=== PATIENT | male | born 1970 | race Caucasian/White ===

== ENCOUNTER 2019-12-08 20:11 | Emergency (ER) | payer SELFPAY ==
[~2019-12-08] VITALS: Ht 185.4 cm; Wt 99.8 kg
[2019-12-08 23:12] LABS: BASO # 0.1 10^3/uL (0.0-0.2); BASO % 0.7 % (0.0-1.0); EOS # 0.3 10^3/uL (0.0-0.5); EOS % 4.2 % (0.0-3.0); HEMATOCRIT 51.3 % (42.0-52.0); HEMOGLOBIN 17.3 g/dl (13.5-17.5); LYMPH # 2.4 10^3/uL (1.5-5.0); LYMPH % 33.4 % (24.0-44.0); MEAN CORPUSCULAR HEMOGLOBIN 29.1 pg (27.0-33.0); MEAN CORPUSCULAR HGB CONC 33.7 g/dl (32.0-36.5); MEAN CORPUSCULAR VOLUME 86.4 fl (80.0-96.0); MONO # 0.8 10^3/uL (0.0-0.8); MONO % 11.1 % (0.0-5.0); NEUTROPHILS # 3.6 10^3/uL (1.5-8.5); NEUTROPHILS % 50.2 % (36.0-66.0); PLATELET COUNT, AUTOMATED 271 10^3/uL (150-450); RED BLOOD COUNT 5.94 10^6/uL (4.30-6.10); WHITE BLOOD COUNT 7.2 10^3/uL (4.0-10.0)
[2019-12-08] MEDS ORDERED: KETOROLAC 30 MG/ML 1ML VIAL IV ONE (23:30)
[2019-12-08] MEDS ORDERED: DICYCLOMINE 10 MG CAP PO ONE (23:30)
[2019-12-08] MEDS ORDERED: NS 1,000 ML IV ONE (23:30)
[2019-12-08] MEDS ORDERED: ONDANSETRON 4MG/2ML VIAL IV ONE (23:30)
[2019-12-08 23:37] LABS: ALBUMIN 3.8 GM/DL (3.2-5.2); BILIRUBIN,DIRECT 0.2 MG/DL (0.0-0.2); BILIRUBIN,TOTAL 0.8 MG/DL (0.2-1.0); TOTAL PROTEIN 7.3 GM/DL (6.4-8.2)
[2019-12-08] MEDS ORDERED: ISOVUE-370 76% 100ML VIAL As Ordered ONE (23:47)
--- NOTE | 2019-12-09 00:37 | REPVR ---
PROCEDURE INFORMATION: Exam: CT Abdomen And Pelvis With Contrast Exam date and time: 12/09/2019 12:07 AM Age: 49 years old Clinical indication: Abdominal pain; Additional info: Diffuse abd pain more llq, diarrhea, n/v TECHNIQUE: Imaging protocol: Computed tomography of the abdomen and pelvis with intravenous contrast. Radiation optimization: All CT scans at this facility use at least one of these dose optimization techniques: automated exposure control; mA and/or kV adjustment per patient size (includes targeted exams where dose is matched to clinical indication); or iterative reconstruction. Contrast material: ISOVUE 370; Contrast volume: 100 ml; Contrast route: INTRAVENOUS (IV); COMPARISON: No relevant prior studies available. FINDINGS: Tubes, catheters and devices: Spinal pulse generator in the left flank. There are leads entering the spinal canal at T8-T9. Tip of the paddle are not fully imaged. Liver: Hypodense lesion in the right hepatic lobe measuring 9 mm. (Series 301, image 55, segment 5). Gallbladder and bile ducts: Normal. No calcified stones. No ductal dilation. Pancreas: Rounded soft tissue density in the tail of the pancreas measuring 3.0 x 3.6 cm. No pancreatic ductal dilatation. Spleen: Normal. No splenomegaly. Adrenals: Normal. No mass. Kidneys and ureters: Normal. No hydronephrosis. Stomach and bowel: Moderate stool in the colon. No abnormal bowel dilatation. No abnormal bowel wall thickening. Negative for colonic diverticulitis. Appendix: Status post appendectomy. Intraperitoneal space: Unremarkable. No free air. No significant fluid collection. Vasculature: Unremarkable. No abdominal aortic aneurysm. Lymph nodes: Few small peripancreatic nodes. Urinary bladder: Unremarkable as visualized. Reproductive: Prostate is mildly enlarged. Bones/joints: No acute fracture. Soft tissues: Unremarkable. IMPRESSION: 1. Rounded soft tissue density in the tail of the pancreas. Suspicious for neoplasm. Recommend MRI without with IV contrast with pancreatic mass protocol if possible considering implantable spinal stimulator device. 2. Additional findings as described. Electronically signed by: Ike Bradley On 12/09/2019 00:36:31 AM
[2019-12-09 01:02] VITALS: BP 189/111
[2019-12-09] MEDS ORDERED: CIPR-249 PO (01:37)
[2019-12-09] MEDS ORDERED: ONDA4TAB6 PO (01:37)
[2019-12-09] MEDS ORDERED: ONDANSETRON 4 MG ORAL DISINTEGRATING TAB PO ONE (01:45)
[2019-12-09] MEDS ORDERED: CIPROFLOXACIN 500MG TABLET PO ONE (01:45)
--- NOTE | 2019-12-10 12:45 | ED PDOC ---
Post-Departure Follow-Up [facility] faxed formal report of ct abd/p for fu. pt had returned next day and appt made for him for [facility]. Mike Bee MD Dec 10, 2019 12:45
== END 2019-12-09 01:49 | disposition home or self-care (01) ==
LOC: M ED 20:11
DX: R11.2 Nausea with vomiting, unspecified (principal); R19.7 Diarrhea, unspecified; I10 Essential (primary) hypertension; R93.89 Abnormal findings on diagnostic imaging of other specified body structures; K76.89 Other specified diseases of liver; Z53.9 Procedure and treatment not carried out, unspecified reason
CPT/HCPCS: 74177; 80047; 80076; 83690; 85025; 96361; 96374; 96375; 99284; J1885; J2405; Q0162; Q9967

== ENCOUNTER 2019-12-09 07:43 | Emergency (ER) | payer SELFPAY ==
[~2019-12-09] VITALS: Ht 185.4 cm; Wt 99.5 kg
[~2019-12-09 07:43] MED LIST: CIPR-249 PO; ONDA4TAB6 PO
[2019-12-09 10:01] VITALS: BP 147/96
== END 2019-12-09 10:05 | disposition home or self-care (01) ==
LOC: M ED 07:43
DX: R93.89 Abnormal findings on diagnostic imaging of other specified body structures (principal); I10 Essential (primary) hypertension; R11.2 Nausea with vomiting, unspecified; Z88.0 Allergy status to penicillin

== ENCOUNTER → 2019-12-17 | Outpatient (CLI) | payer SELFPAY ==
[~2019-12-17] MED LIST changes: +GASTROGRAFIN SOLUTION 30ML (Q9963) As Ordered ONE; +ISOVUE-370 76% 100ML VIAL As Ordered ONE
--- NOTE | 2019-12-18 07:52 | REP ---
INDICATION: PANCREATIC MASS COMPARISON: None. TECHNIQUE: Axial contrast-enhanced images of the abdomen obtained in arterial phase, portal venous phase, and 5 minutes delayed phase time intervals using 100 cc Isovue 370 intravenous contrast material. Coronal and sagittal reformations obtained. FINDINGS: A 3 cm solid enhancing mass at the tail of the pancreas is suspected. No peripancreatic inflammatory stranding or adenopathy appreciated. The adjacent vasculature extending from the celiac axis and splenic vasculature appear normal. Mild hepatomegaly and hepatosteatosis noted without focal hepatic lesion identified. Spleen, gallbladder, bilateral adrenal glands and kidneys are normal. Visualized portions of the small and large bowel are unremarkable. No ascites. No obvious intraperitoneal or retroperitoneal adenopathy. No free air. Abdominal aorta and vasculature appear normal. Incidental retroaortic left renal vein noted. Visualized musculoskeletal structures are intact. IMPRESSION: 1. A 3 cm mildly enhancing pancreatic tail mass. No associated inflammatory stranding, fluid, or adenopathy appreciated. 2. Hepatomegaly and hepatosteatosis. <Electronically signed by Giuseppe Kay > 12/18/19 [id number]
== END ==
LOC: M RAD 16:04
PROVIDERS: ATTEND Student in an Organized Health Care Education/Training Program
DX: K86.89 Other specified diseases of pancreas (principal); R16.0 Hepatomegaly, not elsewhere classified; K76.0 Fatty (change of) liver, not elsewhere classified
CPT/HCPCS: 74160; Q9963; Q9967

== ENCOUNTER → 2020-02-06 | Outpatient (CLI) | payer OTHER, SELFPAY ==
[~2020-02-06] MED LIST changes: +AMLO10TA PO; -GASTROGRAFIN SOLUTION 30ML (Q9963) As Ordered ONE; -ISOVUE-370 76% 100ML VIAL As Ordered ONE
== END ==
LOC: M LABSMTC 14:34
PROVIDERS: ATTEND Internal Medicine
DX: Z01.812 Encounter for preprocedural laboratory examination (principal); Z20.828 Contact with and (suspected) exposure to other viral communicable diseases

== ENCOUNTER → 2020-02-19 | Outpatient (CLI) | payer OTHER, SELFPAY | LOC: M LABSMTC 14:08 | PROVIDERS: ATTEND Internal Medicine | DX: Z01.812 Encounter for preprocedural laboratory examination (principal); K86.89 Other specified diseases of pancreas; Z20.828 Contact with and (suspected) exposure to other viral communicable diseases ==

== ENCOUNTER 2020-02-23 18:21 | Emergency (ER) | payer SELFPAY ==
[~2020-02-23] VITALS: Ht 188 cm; Wt 102.1 kg
[~2020-02-23 18:21] MED LIST changes: -AMLO10TA PO
[2020-02-23 18:22] VITALS: BP 164/97
[2020-02-23] MEDS ORDERED: AMLO10TA PO (18:31)
[2020-02-23 19:24] LABS: BASO % 0.1 % (0.0-1.0); EOS % 0.1 % (0.0-3.0); HEMATOCRIT 45.1 % (42.0-52.0); HEMOGLOBIN 15.7 g/dl (13.5-17.5); LYMPH # 0.9 10^3/uL (1.5-5.0); LYMPH % 6.5 % (24.0-44.0); MEAN CORPUSCULAR HEMOGLOBIN 29.8 pg (27.0-33.0); MEAN CORPUSCULAR HGB CONC 34.8 g/dl (32.0-36.5); MEAN CORPUSCULAR VOLUME 85.7 fl (80.0-96.0); MONO # 0.4 10^3/uL (0.0-0.8); MONO % 2.7 % (0.0-5.0); NEUTROPHILS # 12.6 10^3/uL (1.5-8.5); NEUTROPHILS % 90.2 % (36.0-66.0); PLATELET COUNT, AUTOMATED 345 10^3/uL (150-450); RED BLOOD COUNT 5.26 10^6/uL (4.30-6.10); WHITE BLOOD COUNT 13.9 10^3/uL (4.0-10.0)
[2020-02-23] MEDS ORDERED: MORPHINE 4 MG/ML 1ML VIAL/SYRINGE (J2270) IV PRN (19:30)
[2020-02-23] MEDS ORDERED: ONDANSETRON 4MG/2ML VIAL IV ONE (19:30)
[2020-02-23 19:45] LABS: ALBUMIN 3.9 GM/DL (3.2-5.2); ALT/SGPT 61 U/L (12-78); AMYLASE 46 U/L (25-115); BILIRUBIN,DIRECT 0.2 MG/DL (0.0-0.2); BILIRUBIN,TOTAL 0.7 MG/DL (0.2-1.0); BLOOD UREA NITROGEN 19 MG/DL (7-18); CALCIUM LEVEL 9.2 MG/DL (8.5-10.1); CARBON DIOXIDE LEVEL 22 MEQ/L (21-32); CHLORIDE LEVEL 104 MEQ/L (98-107); CREATININE FOR GFR 1.17 MG/DL (0.70-1.30); GLOMERULAR FILTRATION RATE > 60.0 (>60); GLUCOSE, FASTING 205 MG/DL (70-100); LIPASE 95 U/L (73-393); POTASSIUM SERUM 4.9 MEQ/L (3.5-5.1); SODIUM LEVEL 136 MEQ/L (136-145); TOTAL PROTEIN 7.4 GM/DL (6.4-8.2)
--- NOTE | 2020-02-23 19:52 | REP ---
INDICATION: abd pain s/p EUS with pancreatic biopsy COMPARISON: None. TECHNIQUE: Upright view of the chest with supine view of the abdomen and pelvis. FINDINGS: Frontal upright view of the chest suggests mild bibasilar airspace disease. No effusion or pneumothorax. No free air below diaphragm to suggest pneumoperitoneum. Supine view of the abdomen and pelvis demonstrate nonspecific bowel gas pattern without obstruction or perforation. No organomegaly. No abnormal calcifications. Skeletal structures normal for age. Stimulator device overlies the midthoracic spine. IMPRESSION: 1. Frontal view of the chest suggests mild bibasilar airspace disease and clinical correlation is recommended. 2. Nonspecific bowel gas pattern. No evidence for obstruction or perforation. <Electronically signed by Giuseppe Kay > 02/23/201947
[2020-02-23] MEDS ORDERED: ACETAMINOPHEN *IV* 1,000 MG in IV 1 EA IV ONE (20:00)
[2020-02-23] MEDS ORDERED: ISOVUE-370 76% 100ML VIAL As Ordered ONE (20:38)
== END 2020-02-23 20:59 | disposition left against medical advice (07) ==
LOC: M ED 18:21
DX: Z53.20 Procedure and treatment not carried out because of patient's decision for unspecified reasons (principal); G89.18 Other acute postprocedural pain; I10 Essential (primary) hypertension; Z88.0 Allergy status to penicillin

== ENCOUNTER → 2020-03-30 | Outpatient (REF) | payer BC, OTHER ==
[~2020-03-30] MED LIST changes: +AMLO10TA PO
[2020-03-30 11:02] LABS: BLOOD UREA NITROGEN 18 MG/DL (7-18); CALCIUM LEVEL 9.3 MG/DL (8.5-10.1); CARBON DIOXIDE LEVEL 27 MEQ/L (21-32); CHLORIDE LEVEL 106 MEQ/L (98-107); CREATININE FOR GFR 0.85 MG/DL (0.70-1.30); GLOMERULAR FILTRATION RATE > 60.0 (>60); GLUCOSE, FASTING 140 MG/DL (70-100); POTASSIUM SERUM 4.3 MEQ/L (3.5-5.1); SODIUM LEVEL 139 MEQ/L (136-145)
== END ==
LOC: M SFHCPLAZ 08:04
DX: I10 Essential (primary) hypertension (principal)

== ENCOUNTER → 2020-03-30 | Outpatient (CLI) | payer BC, SELFPAY ==
[2020-03-30 10:53] LABS: HEMATOCRIT 48.5 % (42.0-52.0); HEMOGLOBIN 16.3 g/dl (13.5-17.5); MEAN CORPUSCULAR HEMOGLOBIN 29.3 pg (27.0-33.0); MEAN CORPUSCULAR HGB CONC 33.6 g/dl (32.0-36.5); MEAN CORPUSCULAR VOLUME 87.2 fl (80.0-96.0); PLATELET COUNT, AUTOMATED 242 10^3/uL (150-450); RED BLOOD COUNT 5.56 10^6/uL (4.30-6.10); WHITE BLOOD COUNT 5.9 10^3/uL (4.0-10.0)
[2020-03-30 10:59] LABS: ALBUMIN 3.6 GM/DL (3.2-5.2); ALT/SGPT 41 U/L (12-78); AMYLASE 53 U/L (25-115); BILIRUBIN,TOTAL 0.6 MG/DL (0.2-1.0); BLOOD UREA NITROGEN 18 MG/DL (7-18); CALCIUM LEVEL 9.5 MG/DL (8.5-10.1); CARBON DIOXIDE LEVEL 26 MEQ/L (21-32); CHLORIDE LEVEL 107 MEQ/L (98-107); CREATININE FOR GFR 0.86 MG/DL (0.70-1.30); GLOMERULAR FILTRATION RATE > 60.0 (>60); GLUCOSE, FASTING 145 MG/DL (70-100); LIPASE 299 U/L (73-393); POTASSIUM SERUM 4.4 MEQ/L (3.5-5.1); SODIUM LEVEL 139 MEQ/L (136-145); TOTAL PROTEIN 6.9 GM/DL (6.4-8.2)
== END ==
LOC: M PLALAB 08:04
PROVIDERS: ATTEND Internal Medicine
DX: K86.1 Other chronic pancreatitis (principal)

== ENCOUNTER → 2020-05-10 | Outpatient (REF) | payer BC | LOC: M LAB REF 13:56 | PROVIDERS: ATTEND Internal Medicine | DX: K86.1 Other chronic pancreatitis (principal) ==

== ENCOUNTER 2021-01-10 09:05 | Outpatient (CLI) | payer BC ==
[~2021-01-10] VITALS: Ht 185.4 cm; Wt 103.0 kg
[~2021-01-10 09:05] MED LIST changes: +ALBUTEROL 90 MCG/ACT 8GM HFA INHALER INH PRN; +ALBUTEROL SULFATE 2.5 MG/0.5 ML INH NEB SOLN INH PRN; +CASIRIVIMAB (REGN10933) 600 MG, IMDEVIMAB (REGN10987) 600 MG in NS 250 ML IV ONE; +EPINEPHrine INJ 1 MG/ML 1ML AMP IM PRN; +NS 1,000 ML IV SCH; +diphenhydrAMINE 50MG/ML VIAL (J1200) IV PRN; +methylPREDNISolone 125MG 2ML VIAL IV PRN
[2021-01-10 09:34] VITALS: BP 144/90
[2021-01-10 10:04] VITALS: BP 133/84
[2021-01-10 10:34] VITALS: BP 149/96
[2021-01-10 11:34] VITALS: BP 160/92
== END 2021-01-10 11:34 | disposition home or self-care (01) ==
LOC: M OPCLI4PR 09:05
PROVIDERS: ATTEND Physician Assistant Medical
DX: U07.1 COVID-19 (principal); Z88.0 Allergy status to penicillin

== ENCOUNTER 2023-01-11 11:37 | Day surgery (SDC) | payer BC ==
[~2023-01-11] VITALS: Ht 185.4 cm; Wt 86.5 kg
[~2023-01-11 11:37] MED LIST changes: -ALBUTEROL 90 MCG/ACT 8GM HFA INHALER INH PRN; -ALBUTEROL SULFATE 2.5 MG/0.5 ML INH NEB SOLN INH PRN; -CASIRIVIMAB (REGN10933) 600 MG, IMDEVIMAB (REGN10987) 600 MG in NS 250 ML IV ONE; +CLAR1TAB13 PO; -EPINEPHrine INJ 1 MG/ML 1ML AMP IM PRN; +KETOROLAC 60MG 2ML VIAL As Ordered ONE; +LIDOCAINE 2% 100MG/5ML SDV (FOR ANES.) As Ordered ONE; +LOSA50TA28 PO; +MIDAZOLAM INJ 2MG/2ML VIAL As Ordered ONE; -NS 1,000 ML IV SCH; +ONDANSETRON 4MG 2ML VIAL As Ordered ONE; +ROCURONIUM BROMIDE 50MG/5ML VIAL As Ordered ONE; -diphenhydrAMINE 50MG/ML VIAL (J1200) IV PRN; +fentaNYL 100 MCG/2 ML INJECTION As Ordered ONE; -methylPREDNISolone 125MG 2ML VIAL IV PRN; +propofoL 200 MG/20 ML VIAL As Ordered ONE
[2023-01-11] MEDS ORDERED: LR 1,000 ML IV SCH ×2 (12:20→15:15)
[2023-01-11] MEDS ORDERED: dexmedeTOMIDine (4MCG/ML)200MCG/50ML BTL (PRECEDEX) As Ordered ONE (13:03)
[2023-01-11] MEDS ORDERED: KETAMINE HCL 200MG/20ML VIAL As Ordered ONE (13:03)
[2023-01-11] MEDS ORDERED: CLINDAMYCIN 900MG/50ML PREMIX BAG As Ordered ONE (13:26)
[2023-01-11] MEDS ORDERED: HEPARIN SOD (PORCINE) 5000UNITS/ML 1ML VIAL/SYRINGE As Ordered ONE (13:26)
[2023-01-11] MEDS ORDERED: CLINDAMYCIN 900 MG in IV 1 EA IV ONE (13:30)
[2023-01-11] MEDS ORDERED: ACETAMINOPHEN 1000MG 100ML IV BAG As Ordered ONE (13:54)
[2023-01-11] MEDS ORDERED: LABETALOL 100MG/20ML VIAL As Ordered ONE (13:58)
[2023-01-11] MEDS ORDERED: HYDROmorphone HCL 2MG/ML 1ML VIAL As Ordered ONE (14:02)
[2023-01-11] MEDS ORDERED: hydrALAZINE 20MG/ML 1ML VIAL As Ordered ONE (14:04)
[2023-01-11] MEDS ORDERED: ROCURONIUM BROMIDE 50MG/5ML VIAL As Ordered ONE (14:47)
[2023-01-11] MEDS ORDERED: SUGAMMADEX SODIUM 500 MG/5 ML VIAL (BRIDION) As Ordered ONE (15:07)
[2023-01-11] MEDS ORDERED: HYDROMORPHONE HCL 0.5 MG/ 0.5 ML SYRINGE IV PRN (15:15)
[2023-01-11] MEDS ORDERED: ONDANSETRON 4MG 2ML VIAL IV PRN (15:15)
[2023-01-11] MEDS ORDERED: fentaNYL 100 MCG/2 ML INJECTION IV PRN (15:15)
[2023-01-11] MEDS ORDERED: oxyCODONE 5MG TAB PO PRN (15:15)
[2023-01-11 16:55] VITALS: BP 131/68; TEMP 97.2; O2SAT 99
== END 2023-01-11 17:02 | disposition home or self-care (01) ==
LOC: M SDC 11:37
PROVIDERS: ATTEND Surgery
DX: K40.30 Unilateral inguinal hernia, with obstruction, without gangrene, not specified as recurrent (principal); I10 Essential (primary) hypertension; Z96.82 Presence of neurostimulator; Z88.0 Allergy status to penicillin; Z79.899 Other long term (current) drug therapy; F17.290 Nicotine dependence, other tobacco product, uncomplicated; F17.220 Nicotine dependence, chewing tobacco, uncomplicated
CPT/HCPCS: 49650; C1781; J0131; J0360; J0665; J0737; J1100; J1170; J1885; J1920; J2250; J2405; J3010; S2900

== ENCOUNTER 2023-01-20 10:14 | Emergency (ER) | payer BC ==
[~2023-01-20] VITALS: Ht 188 cm; Wt 86.9 kg
[~2023-01-20 10:14] MED LIST changes: -KETOROLAC 60MG 2ML VIAL As Ordered ONE; -LIDOCAINE 2% 100MG/5ML SDV (FOR ANES.) As Ordered ONE; -MIDAZOLAM INJ 2MG/2ML VIAL As Ordered ONE; -ONDANSETRON 4MG 2ML VIAL As Ordered ONE; -ROCURONIUM BROMIDE 50MG/5ML VIAL As Ordered ONE; -fentaNYL 100 MCG/2 ML INJECTION As Ordered ONE; -propofoL 200 MG/20 ML VIAL As Ordered ONE
[2023-01-20 10:16] VITALS: BP 165/93; TEMP 97.6; O2SAT 97
== END 2023-01-20 11:15 | disposition left against medical advice (07) ==
LOC: M ED 10:14
DX: Z53.21 Procedure and treatment not carried out due to patient leaving prior to being seen by health care provider (principal)

== ENCOUNTER → 2023-04-10 | Outpatient (CLI) | payer OTHER ==
[~2023-04-10] MED LIST changes: +GASTROGRAFIN SOLUTION 30ML As Ordered ONE; +ISOVUE-370 76% 100ML VIAL As Ordered ONE
== END ==
LOC: M RAD 12:17
PROVIDERS: ATTEND Internal Medicine Gastroenterology
DX: K85.90 Acute pancreatitis without necrosis or infection, unspecified (principal)
CPT/HCPCS: 74177; Q9963; Q9967

== ENCOUNTER → 2023-05-15 | Outpatient (CLI) | payer OTHER ==
[~2023-05-15] MED LIST changes: -GASTROGRAFIN SOLUTION 30ML As Ordered ONE; -ISOVUE-370 76% 100ML VIAL As Ordered ONE
== END ==
LOC: M WUC 09:22
PROVIDERS: ATTEND Internal Medicine
DX: M25.552 Pain in left hip (principal)

== ENCOUNTER → 2023-05-15 | Outpatient (REF) | payer OTHER ==
[2023-05-15 14:11] LABS: C REACTIVE PROTEIN QUANTITATIV < 0.40 MG/DL (<1.0)
[2023-05-15 14:12] LABS: LDH LACTATE DEHYDROGENASE 179 U/L (120-246)
== END ==
LOC: M LAB REF 08:52
PROVIDERS: ATTEND Internal Medicine
DX: R63.4 Abnormal weight loss (principal); M25.552 Pain in left hip

== ENCOUNTER → 2024-07-01 | Outpatient (REF) | payer OTHER, BC ==
[~2024-07-01] MED LIST changes: +AMLO-751 PO; -AMLO10TA PO; +ONDA-282 PO; -ONDA4TAB6 PO
[2024-07-01 13:37] LABS: PERCENT SATURATION 34.6 % (19.7-50.0)
[2024-07-01 13:40] LABS: FERRITIN 45.5 NG/ML (10.5-307.3)
== END ==
LOC: M LAB REF 12:20
PROVIDERS: ATTEND Internal Medicine
DX: R10.13 Epigastric pain (principal)

== ENCOUNTER 2024-09-11 07:08 | Emergency (ER) | payer BC ==
[~2024-09-11] VITALS: Ht 185.4 cm; Wt 81.5 kg
[2024-09-11] MEDS ORDERED: HOME MED LIST COMPLETE! XX SCH (10:20)
[2024-09-11 10:45] VITALS: BP 148/86; TEMP 96.7; O2SAT 96
[2024-09-11] MEDS: IBUPROFEN 800 MG TAB PO ONE (10:46)
== END 2024-09-11 11:02 | disposition home or self-care (01) ==
LOC: M ED 07:08
DX: S70.01XA Contusion of right hip, initial encounter (principal); S93.401A Sprain of unspecified ligament of right ankle, initial encounter; Y92.019 Unspecified place in single-family (private) house as the place of occurrence of the external cause; Y93.9 Activity, unspecified; Y99.9 Unspecified external cause status; W10.8XXA Fall (on) (from) other stairs and steps, initial encounter; Z88.0 Allergy status to penicillin; Z79.899 Other long term (current) drug therapy